=== PATIENT | male | born 1950 | race Caucasian/White ===

== ENCOUNTER → 2016-07-12 | Outpatient (CLI) | payer MEDICARE, OTHER ==
[~2016-07-12] MED LIST: ATIVAN1 MG PO; ATORVASTATIN CA80 MG PO; METOPROLOL SUC100 M1 PO; Metformin HCl500 MG PO; NEXIUM40 MG PO; PYRIDIUM 200MG200 MG PO; SEPTRA DS 800 M1 TAB PO; ZOLPIDEM 10MG T10 MG PO
--- NOTE | 2016-07-13 09:33 | RADIOLOGY REPORT PS360 ---
PROCEDURE: 2-D M-mode and color Doppler study INDICATIONS FOR THE TEST: Chest pain COPDX Heart Murmur Tobacco SmokingX Palpitations Fatigue Syncope Edema HypertensionXDiabetes MellitusX Rheumatic Fever SOBXDOE Obesity HyperlipidemiaX Family History HD Additional History CAD PATIENT INFORMATION HEIGHT: 72 WEIGHT:220 GENDER: Male B/P:104/80 2-D/M-MODE INTERPRETATION: 2-D MEASUREMENTS OBSERVED VALUES IN CMS Right Ventricular Dimension (RVDd) 2.4 Interventricular Septum (Thickness)(IVsd) 1.1 Left Ventricular Internal Dimensions(LVIDd) 5.4 Left Ventricular Posterior Wall (Thickness)(LVPWd) 1.0 Aortic Root 3.4 Aortic Cusp Separation 1.9 Left Atrial Dimensions (LAD) 3.8 2D 1. Left atrium is qualitatively mildly enlarged, left ventricle is normal size, there is mild qualitative concentric left ventricular hypertrophy present, visually estimated ejection fraction 55% with no obvious regional wall motion abnormality. 2. The right atrium is normal size, right ventricle is mildly enlarged with normal contractility. 3. The aortic valve is minimally thickened and fibrosed leaflet continue to display mobility. 4. The mitral valve leaflets are minimally thickened. 5. The tricuspid valve is structurally normal. 6. The pulmonic valve is not well visualized. 7. No significant pericardial effusion noted. DOPPLER INTERROGATION: Doppler interrogation of the aortic mitral and tricuspid valvular presence of trace aortic, mild mitral and tricuspid regurgitation, tricuspid regurgitant jet velocity insufficient for calculation of the right ventricular systolic pressure, grade 1 diastolic dysfunction seen without tissue Doppler evidence of raised left atrial pressure. CONCLUSION: 1. Normal left ventricular size, mild qualitative concentric left ventricular hypertrophy, visually estimated ejection fraction 55% with no obvious regional wall motion abnormality, grade 1 diastolic dysfunction seen without tissue Doppler evidence of raised left atrial pressure. 2. Trace aortic, mild mitral and tricuspid regurgitation, tricuspid regurgitant jet velocity insufficient for acquisition of the right ventricular systolic pressure. 3. No significant pericardial effusion noted.
== END ==
LOC: RT 08:12
DX: I25.10 Atherosclerotic heart disease of native coronary artery without angina pectoris (principal); J44.9 Chronic obstructive pulmonary disease, unspecified; Z72.0 Tobacco use